=== PATIENT | female | born 1955 | race Caucasian/White ===

== ENCOUNTER 2018-05-06 07:30 | Day surgery (SDC) ==
[2018-05-06] MEDS ORDERED: LIDOCAINE 1% 20 ML MDV ID STA (07:55)
[2018-05-06] MEDS ORDERED: BSS WITH EPINEPHRINE OP ONE (07:55)
[2018-05-06] MEDS ORDERED: BRIMONIDINE TARTRATE 0.2% OPTH SOL OP PRN (07:55)
[2018-05-06] MEDS ORDERED: LIDOCAINE 1%/PHENYLEPHRINE 1.5% BSS (SURGERY) INTRAOCULA ONE (07:55)
[2018-05-06] MEDS ORDERED: ZOFRAN 4 MG/2 ML IVP ONE (07:55)
[2018-05-06] MEDS ORDERED: DEX-MOXI-KETOR OPTH INJ 1/0.5/0.4 MG/ML IO ONE (07:55)
[2018-05-06] MEDS: BETADINE OPTH PREP OP PRN ×2 (08:00→08:20)
[2018-05-06] MEDS: TETRACAINE 0.5% UNIT-DOSE OP PRN ×2 (08:00→08:20)
[2018-05-06] MEDS: CYCLOGYL 2% OPTH OP PRN ×3 (08:00→08:10)
[2018-05-06 08:11] VITALS: TEMP 97.8
[2018-05-06] MEDS ORDERED: ZOFRAN 4 MG/2 ML ONE (08:30)
[2018-05-06] MEDS ORDERED: SUBLIMAZE ONE (08:30)
[2018-05-06] MEDS ORDERED: VERSED ONE (08:30)
[2018-05-06 13:21] VITALS: BP 169/89
== END 2018-05-06 09:25 | disposition home or self-care (01) ==
LOC: SURG 07:30
PROVIDERS: ATTEND Ophthalmology
DX: H25.12 Age-related nuclear cataract, left eye (principal)